=== PATIENT | female | born 1970 | race Caucasian/White ===

== ENCOUNTER 2021-06-03 14:31 | Emergency (ER) | payer OTHER, SELFPAY ==
--- NOTE | ~2021-06-03 | US_ITS ---
EXAMINATION: US DIAGNOSTIC ULTRASOUND BREAST, right. CLINICAL INFORMATION: Tenderness and firmness at the 8 o'clock position. COMPARISON: None. TECHNIQUE: Ultrasound of the right breast is performed with real-time clifton scale imaging and color Doppler. Region scanned from the 6:00 to 9:00 position FINDINGS: There is an anechoic cyst 2 cm from the nipple at 8:00 position. This measures 0.7 x 0.4 x 0.4 cm. There is an anechoic cyst at the 7:00 position 5 cm from the nipple. This measures 0.3 x 0.4 x 0.2 cm. No solid mass. No hyperemia. No evidence of abscess. US/US breast RT limited IMPRESSION: 2 small anechoic cysts in right breast in area of clinical concern. ASSESSMENT: BI-RADS 2: Benign RECOMMENDATION: 1. Patient should be managed based on the clinical impression. Decision to proceed with biopsy should be based on clinical grounds and degree of clinical concern. 2. Otherwise, routine annual screening mammography. This patient's information was entered into a reminder system with a target due date for their next mammogram.
[2021-06-03 15:13] VITALS: BP 170/83; PULSE 69; RESP 18; TEMP 36.7; O2SAT 98; BMI 32.0
[2021-06-03 15:45] LABS: COVID-19 Test Positive (Negative)
--- NOTE | 2021-06-03 16:25 | ED_ITS ---
HPI - General Adult General Chief complaint: General Medical Stated complaint: r breast pain Time Seen by Provider: 06/03/21 16:25 Source: patient Mode of arrival: ambulatory Limitations: no limitations History of Present Illness HPI narrative: 50 y/o female presenting with right breast pain for the last 4 days. She reports feeling something warm and firm on the right side of breast and it is very painful. She denies any trauma. No fevers or skin changes. She has never had any mammograms or ultrasounds before. She also reports a mild scratchy throat and dry cough. No SOB or chest pain. MD complaint: right breast pain Onset (ago): day(s) (4) Location: chest Radiation: non-radiation Severity: moderate Severity scale (1-10): 6 Quality: aching Pain Consistency: constant Relieving factors: none Exacerbating factors: movement and other (palpation) Associated symptoms: cough Treatments prior to arrival: none Related Data Previous Rx's Medication Instructions Recorded cephalexin 500 mg capsule 500 mg PO Q6H 7 Days #28 cap 06/03/21 doxycycline hyclate 100 mg tablet 100 mg PO BID #14 tab 06/03/21 Allergies Allergy/AdvReac Type Severity Reaction Status Date / Time sumatriptan [From IMITREX] Allergy Unknown UNKNOWN Verified 06/03/21 15:13 From IMITREX Allergy Unknown UNKNOWN Uncoded 02/15/20 17:07 Review of Systems Review of Systems: Constitutional: No Fever, No Chills ENT/Mouth: + sore throat, No Rhinorrhea, No Swallowing Difficulty Cardiovascular: No Chest Pain, No SOB Respiratory: + Cough, No Sputum, No Wheezing, No dyspnea Gastrointestinal: No Nausea, No Vomiting, No Diarrhea, No abdominal Pain Musculoskeletal: No joint pain, No Myalgias Skin: + Skin Lesions, No rash Neuro: No Weakness, No Numbness, No Dizziness, No Headache Psych: + Anxiety/Panic, No Depression Heme/Lymph: No Bruising, No Lymphadenopathy PMFSH Past Medical History Medical History (Updated 06/03/21 @ 19:38 by LOI Blair) Patient denies medical problems Social History Social History Advance Directives: No Advance Directives Information Provided: No Physical Exam Vital Signs: Vital Signs: Last Vital Signs Temp 98.0 F 06/03/21 15:13 Pulse 69 06/03/21 15:13 Resp 18 06/03/21 15:13 BP 170/83 H 06/03/21 15:13 Pulse Ox 98 06/03/21 15:13 BMI result Body Mass Index 32.0 Appearance: Alert. Oriented X3. No acute distress. Eyes: Pupils equal, round and reactive to light. ENT: Pharynx normal. No tonsillar exudate or swelling, uvula midline. Neck: Normal inspection. Neck supple. CVS: Normal heart rate and rhythm. Pulses normal. Chest: normal inspection of bilateral breasts. right breast with tender and slightly firm area at 8 o'clock without any associated warmth, erythema or fluctuance. no nipple discharge Respiratory: No respiratory distress. Breath sounds normal. Skin: Skin warm and dry. Normal skin color. Normal skin turgor. No rashes. Extremities: No lower extremity edema. Neuro: Oriented X 3. Grossly normal, nonfocal Course Course Course Narrative: 50 y/o female presenting with right breast pain x4 days. No palpable abscess on exam. Will get ultrasound to look for deeper abscess. Also found to be COVID positive. Symptoms are mild. Reevaluation(s) Reevaluation #1: Received call from radiology that a special mammography for/breast specialist is not available to read her ultrasound tonight. Asked that a preliminary read be done from radiologist to get rate soft tissue images. The readings showing 2 small anechoic cysts in the right breast. Photo was sent to Dr. Fernandez with concern of possible underlying abscess. He is recommending oral antibiotics, follow up in 1 week in the office for a fine- needle aspiration. freelance interpreter/translator was used to explain the results and plan. Patient expressed understanding. Stable for discharge home with p.o. antibiotics and surgical follow-up. Medical Decision Making Lab Data Labs: Lab Results 06/03/21 Range/Units 15:19 COVID-19 (DANIEL) Positive A (Negative) COVID-19 Clin Com See Note Discharge Plan Discharge Clinical Impression: COVID-19, Abscess of breast Patient Disposition: Home, Self-Care Instructions: Covid-19 Viral Syndrome and Novel Coronavirus (ED) Hey/Ath Additional Instructions: You were found to be COVID-19 POSITIVE today. Your oxygen levels were normal. Rest. Drink plenty of fluids. Do not go out in public for the next 7 days. Take over the counter cold/flu medications as needed for your symptoms. Take Tylenol and/or Motrin as needed for fevers and body aches. Follow up with your doctor this week. If you shortness of breath worsens, if you develop difficulty breathing or any other concerning symptom come back to the ER for further evaluation. Your breast ultrasound showed 2 small possible abscesses vs cysts. Start the prescribed antibiotics. You will need to follow up with a general surgeon for evaluation and get a needle aspiration. Call Dr. Fernandez's office tomorrow to arrange this. Name and number below. Se encontr? que hoy es COVID-19 POSITIVO. Shalini niveles de ox?earl pola normales. Descansar. Beber mucho l?quido. No salgas en p?blico simon los pr?ximos 7 d?as. [place] medicamentos de venta brayan para el resfriado / la gripe seg?n sea necesario para shalini s?ntomas. [place] Tylenol y / o Motrin seg?n sea necesario para la fiebre y los randy corporales. Elvis un seguimiento con chau m?dico esta semana. Si chau dificultad para respirar empeora, si presenta dificultad para respirar o cualquier otro s?ntoma preocupante, regrese a la alyson de emergencias para nabil evaluaci?n adicional. Chau ultrasonido de mama mostr? 2 posibles abscesos joshua?os frente a quistes. Inicie los antibi?ticos recetados. Deber? hacer un seguimiento con un cirujano general para nabil evaluaci?n y nabil aspiraci?n con aguja. Llame a la oficina del Dr. Fernandez ma?jc para arreglar esto. Nombre y n?martha a continuaci?n. Prescriptions: New doxycycline hyclate 100 mg tablet 100 mg PO BID Qty: 14 RF: 0 cephalexin 500 mg capsule 500 mg PO Q6H 7 Days Qty: 28 RF: 0 Referrals: Reginaldo Fernandez MD [Physician] - 2 days (breast abscess vs cyst) Interventions: ED Discharge Assessment Last Done: 06/03/21 20:33 Discharge Date/Time: 06/03/21 20:36 Print Language: Slovenian
[2021-06-03] MEDS: cephALEXin 500 MG CAPSULE PO (20:30)
== END 2021-06-03 20:36 | disposition home or self-care (01) ==
PROVIDERS: Emergency Provider Emergency Medicine Emergency Medical Services; PCP Internal Medicine Endocrinology, Diabetes & Metabolism
DX: U07.1 COVID-19 (principal); N61.1 Abscess of the breast and nipple; N64.4 Mastodynia
CPT/HCPCS: 76642; 87635; 99282; 99284

== ENCOUNTER → 2021-06-19 09:47 | Outpatient (BNVA) | payer OTHER, SELFPAY | PROVIDERS: PCP Internal Medicine Endocrinology, Diabetes & Metabolism; Visit Provider Surgery | DX: N61.1 Abscess of the breast and nipple (principal) | CPT/HCPCS: 99202 ==

== ENCOUNTER 2022-07-24 16:31 | Emergency (ER) | payer OTHER, SELFPAY ==
--- NOTE | ~2022-07-24 | US_ITS ---
EXAMINATION: US PELVIS CLINICAL INFORMATION: Left lower quadrant pain. Hysterectomy. Right oophorectomy. COMPARISON: CT abdomen/pelvis 07/26/2018. TECHNIQUE: Ultrasound of the pelvis is performed using both transabdominal and transvaginal transducers along with Doppler. Transvaginal imaging is performed due to inadequate visualization transabdominally. FINDINGS: Hysterectomy and right oophorectomy. The left ovary is enlarged measuring 5.3 x 2.9 x 3.1 cm (25 mL) with suggestion of some degree of heterogeneity of the ovarian stroma. There is preserved flow on color and spectral Doppler to the left ovary at the moment of this examination. There is a 3.2 x 2.6 x 3.1 cm simple anechoic cyst in the left ovary. There is an additional 1.6 x 1.6 x 1.3 cm cystic appearing observation in the left ovary with thickened duran and internal debris. Small amount of free fluid adjacent to the left ovary. US/US pelvic ovarian doppler IMPRESSION: The left ovary is enlarged with equivocal heterogeneity of the parenchyma, although with preserved flow at the moment of this examination. If ovarian torsion is suspected, additional evaluation with a MR of the pelvis with and without IV contrast could be obtained if clinically pertinent. There is a 3.2 cm cystic appearing lesion in the left ovary with thickened duran and debris, possibly representing a corpus luteal cyst, though incompletely characterized. This could be assessed with the above recommended MRI or with an interval pelvic ultrasound in 6-12 weeks. An additional 1.6 cm simple cyst in the left ovary is almost are likely benign, for which no imaging follow-up is recommended.
--- NOTE | ~2022-07-24 | US_ITS ---
EXAMINATION: US PELVIS CLINICAL INFORMATION: Left lower quadrant pain. Hysterectomy. Right oophorectomy. COMPARISON: CT abdomen/pelvis 07/26/2018. TECHNIQUE: Ultrasound of the pelvis is performed using both transabdominal and transvaginal transducers along with Doppler. Transvaginal imaging is performed due to inadequate visualization transabdominally. FINDINGS: Hysterectomy and right oophorectomy. The left ovary is enlarged measuring 5.3 x 2.9 x 3.1 cm (25 mL) with suggestion of some degree of heterogeneity of the ovarian stroma. There is preserved flow on color and spectral Doppler to the left ovary at the moment of this examination. There is a 3.2 x 2.6 x 3.1 cm simple anechoic cyst in the left ovary. There is an additional 1.6 x 1.6 x 1.3 cm cystic appearing observation in the left ovary with thickened duran and internal debris. Small amount of free fluid adjacent to the left ovary. US/US pelvic and transvaginal IMPRESSION: The left ovary is enlarged with equivocal heterogeneity of the parenchyma, although with preserved flow at the moment of this examination. If ovarian torsion is suspected, additional evaluation with a MR of the pelvis with and without IV contrast could be obtained if clinically pertinent. There is a 3.2 cm cystic appearing lesion in the left ovary with thickened duran and debris, possibly representing a corpus luteal cyst, though incompletely characterized. This could be assessed with the above recommended MRI or with an interval pelvic ultrasound in 6-12 weeks. An additional 1.6 cm simple cyst in the left ovary is almost are likely benign, for which no imaging follow-up is recommended.
--- NOTE | ~2022-07-24 | CT_ITS ---
EXAMINATION: CT ABDOMEN AND PELVIS WITHOUT CONTRAST CLINICAL INFORMATION: Left lower quadrant pain COMPARISON: Pelvic ultrasound from earlier today, CT 07/26/2018 TECHNIQUE: Multidetector volumetric imaging was performed from the superior aspect of the liver through the pubic symphysis. Sagittal and coronal reformatted images were obtained on the technologist's workstation. This CT examination was performed using dose optimization techniques as appropriate, variously including the following: *Automated exposure control *Adjustment of mA and/or kV according to patient size (this includes techniques or standardized protocols for targeted exams where dose is matched to indication/reason for exam; i.e. extremities or head) *Use of iterative reconstruction technique DLP: 639 mGy-cm FINDINGS: LUNG BASES: Subsegmental atelectasis. LIVER, GALLBLADDER, AND BILIARY TREE: The liver is normal in size, shape, and attenuation. No focal hepatic lesion or biliary ductal dilatation is present. Patient is status post cholecystectomy. PANCREAS: Unremarkable. SPLEEN: Unremarkable. ADRENAL GLANDS: Unremarkable. KIDNEYS AND URETERS: No hydronephrosis or obstructing calculus bilaterally. There is an approximately 3 cm left renal cyst; no follow-up recommended. BLADDER: Unremarkable. GASTROINTESTINAL TRACT: No evidence of bowel obstruction or significant wall thickening. The appendix is unremarkable. No free air is seen. ABDOMINAL WALL: No significant hernia is appreciated. LYMPH NODES: Normal. VASCULAR: Unremarkable. PELVIC VISCERA: Status post hysterectomy. There is a 3.0 cm left adnexal cyst, in keeping with appearance on recent pelvic ultrasound. Small amount of pelvic free fluid. OSSEOUS STRUCTURES: Multilevel endplate osteophytes in the spine. CT/CT abdomen pelvis wo IV con IMPRESSION: Left adnexal cyst measuring 3.0 cm, in keeping with findings on recent pelvic ultrasound. Small amount of nonspecific pelvic free fluid, which may be physiologic. No additional acute findings identified.
--- NOTE | 2022-07-24 17:05 | ED.GENADULT ---
HPI - General Adult General Chief complaint: Abdominal Pain <LOI Blackman - Last Filed: 07/24/22 17:07> Stated complaint: ovarian pain <LOI Blackman - Last Filed: 07/24/22 17:07> Time Seen by Provider: 07/24/22 23:06 <LOI Blackman - Last Filed: 07/24/22 17:07> Source: patient <Elzbieta Juarez MD - Last Filed: 07/25/22 00:37> Mode of arrival: ambulatory <Elzbieta Juarez MD - Last Filed: 07/25/22 00:37> Limitations: no limitations <Elzbieta Juarez MD - Last Filed: 07/25/22 00:37> History of Present Illness HPI narrative: The patient comes to the emergency room complaining of left lower quadrant pain starting today. Patient states that in the morning she had a bit of achiness, then while she was working, around 16:00, the pain got much worse. Since then it has been constant. Patient denies nausea vomiting diarrhea or constipation. Patient states that she has history of ovarian cysts, patient states that her right ovary has been surgically removed and her uterus as well. Patient denies fever chills, no dysuria or hematuria <Elzbieta Juarez MD - Last Filed: 07/25/22 00:37> Related Data Home medications: Previous Rx's Medication Instructions Recorded cephalexin 500 mg capsule 500 mg PO Q6H 7 days #28 caps 06/19/21 doxycycline hyclate 100 mg tablet 100 mg PO BID #14 tabs 06/19/21 ketorolac 10 mg tablet 10 mg PO TID PRN pain #10 tabs 07/25/22 <LOI Blackman - Last Filed: 07/24/22 17:07> Allergies/adverse reactions: Allergies Allergy/AdvReac Type Severity Reaction Status Date / Time sumatriptan [From IMITREX] Allergy Unknown UNKNOWN Verified 07/24/22 17:06 From IMITREX Allergy Unknown UNKNOWN Uncoded 06/19/21 10:03 <LOI Blackman - Last Filed: 07/24/22 17:07> Review of Systems Review of Systems: Constitutional : No Weight loss, No Fever, No Chills, No Night Sweats, No Fatigue, No Malaise ENT/Mouth : No Hearing loss, No Ear Pain, No Nasal Congestion, No Sinus Pain, No Hoarseness, No sore throat, No Rhinorrhea, No Swallowing Difficulty Eyes: No Eye Pain, No Swelling, No Redness, No Foreign Body, No Discharge, No Vision Changes Cardiovascular : No Chest Pain, No SOB, No Dyspnea on Exertion, No Orthopnea, No Edema, No Palpitations Respiratory : No Cough, No Sputum, No Wheezing, No Smoke Exposure, No Dyspnea Gastrointestinal : No Nausea, No Vomiting, No Diarrhea, No Constipation, complaining of left lower quadrant pain Genitourinary : no irregular bleeding, No Dysuria, No Urinary Frequency, No Hematuria, No Urinary Incontinence, No Urgency, No Flank Pain, No Urinary Flow Changes, No Hesitancy Musculoskeletal : No joint pain, No Myalgias, No Joint Swelling Skin : No Skin Lesions, No rash Neuro : No Weakness, No Numbness, No Paresthesias, No Loss of Consciousness, No Dizziness, No Headache Psych : No Anxiety/Panic, No Depression, No SI/HI/AH/VH, No Social Issues, Heme/Lymph: No Bruising, No Bleeding,No Lymphadenopathy Endocrine : No Polyuria, No Polydipsia, No Temperature Intolerance <Elzbieta Juarez MD - Last Filed: 07/25/22 00:37> [facility] Past Medical History Medical History: Medical History Patient denies medical problems <LOI Blackman - Last Filed: 07/24/22 17:07> Surgical History: Surgical History History of bilateral carpal tunnel release History of hysterectomy History of tubal ligation S/P removal of right ovary <LOI Blackman - Last Filed: 07/24/22 17:07> Family History Family History: Family History Sister Breast cancer Sister Breast cancer Family/Other Breast cancer <LOI Blackman - Last Filed: 07/24/22 17:07> Social History Social History: Social History Alcohol intake: current Alcohol intake frequency: holidays/special occasions only Patient Tobacco Use Status: Former Tobacco user Advance Directives: No Advance Directives Information Provided: No <LOI Blackman - Last Filed: 07/24/22 17:07> Physical Exam ED Vital Signs: Vital Signs - 24 hr 07/24/22 17:06 07/24/22 23:53 Temperature 98.2 F 97.4 F Pulse Rate 71 67 Respiratory Rate 16 14 Blood Pressure 138/78 170/83 H Pulse Oximetry 99 98 Oxygen Delivery Method Room Air BMI result Body Mass Index 34.2 <LOI Blackman - Last Filed: 07/24/22 17:07> Vital Signs - 24 hr 07/24/22 17:06 07/24/22 23:53 Temperature 98.2 F 97.4 F Pulse Rate 71 67 Respiratory Rate 16 14 Blood Pressure 138/78 170/83 H Pulse Oximetry 99 98 Oxygen Delivery Method Room Air BMI result Body Mass Index 34.2 <Elzbieta Juarez MD - Last Filed: 07/25/22 00:37> Const Other: Appearance: Alert. Oriented X3. No acute distress. Eyes: Pupils equal, round and reactive to light. ENT: Pharynx normal. Neck: Normal inspection. Neck supple. No lymph nodes noted. No crepitus CVS: Normal heart rate and rhythm. Pulses normal. Normal S1 and S2 Respiratory: No respiratory distress. Breath sounds normal. No Wheezing. No rales Abdomen: Soft, no rigidity, no distension, no rebound or guarding. Mild left lower quadrant pain on deep palpation. Skin: Skin warm and dry. Normal skin color. Normal skin turgor. Extremities: No lower extremity edema. No Lacerations. No Rash Neuro: Oriented X 3. No motor deficit. No sensory deficit. Moving all extremities. No slurred speech. CN 2 through 12 grossly intact Psych: calm, cooperative, normal affect <Elzbieta Juarez MD - Last Filed: 07/25/22 00:37> Course Course Course Narrative: RME performed by Ciara Cai PA-C. Patient is a 51 year old female presenting to the emergency department with left lower quadrant abdominal pain. Patient states that it feels like ovarian pain as her right ovary hurt like this before it was removed. Labs ordered. Patient placed back in the waiting room pending room availability and results. <LOI Blackman Last Filed: 07/24/22 17:07> Medications Administered Discontinued Medications Generic Name Dose Route Start Last Admin Trade Name Freq PRN Reason Stop Dose Admin Ketorolac Tromethamine 60 mg 07/24/22 23:11 07/24/22 23:42 Ketorolac Tromethamine 60 Mg/2 Ml Vial IM 07/24/22 23:12 60 mg ONCE ONE Administration <LOI Blackman - Last Filed: 07/24/22 17:07> Medications Administered Discontinued Medications Generic Name Dose Route Start Last Admin Trade Name Freq PRN Reason Stop Dose Admin Ketorolac Tromethamine 60 mg 07/24/22 23:11 07/24/22 23:42 Ketorolac Tromethamine 60 Mg/2 Ml Vial IM 07/24/22 23:12 60 mg ONCE ONE Administration <Elzbieta Juarez MD - Last Filed: 07/25/22 00:37> Medical Decision Making Medical Decision Making [facility] Narrative: -patient's labs are unremarkable, there is a small 1.6 simple cyst in the left ovary -patient's CT consistent with ultrasound, patient has a left ovarian cyst, not ruptured. -and was given IM ketorolac. Patient feeling better. -patient instructed to follow-up with his primary care physician and Ob Gyne <Elzbieta Juarez MD - Last Filed: 07/25/22 00:37> Differential Diagnosis Differential Diagnoses: The differential diagnosis associated with the presentation includes (Ovarian cyst, diverticulitis) <Elzbieta Juarez MD - Last Filed: 07/25/22 00:37> Lab Data [facility] Lab Attestation statement: I reviewed the patient's lab results. <Elzbieta Juarez MD - Last Filed: 07/25/22 00:37> Result Diagrams: 07/24/22 17:19 07/24/22 17:19 <LOI Blackman - Last Filed: 07/24/22 17:07> Labs: Lab Results 07/24/22 07/24/22 07/24/22 Range/Units 17:19 17:19 22:07 WBC 7.9 (4.8-10.8) X10*3/uL RBC 4.42 (4.20-5.50) X10*6/uL Hgb 13.1 (12.0-16.0) g/dl Hct 40.2 (37.0-47.0) % MCV 91.0 (80.0-98.0) fL MCH 29.6 (27.0-33.0) pg MCHC 32.6 (31.0-35.0) g/dl RDW 11.9 (11.0-16.0) % Plt Count 197 (160-400) X10*3/uL MPV 10.8 (9.4-12.3) fL Immature Gran % (Auto) 0.4 (0.0-0.4) % Neut % (Auto) 56.0 (45-73) % Lymph % (Auto) 34.2 (20-40) % [place] % (Auto) 6.8 (2-11) % Eos % (Auto) 1.8 (0-4) % Baso % (Auto) 0.8 (0-2) % Lymph # (Auto) 2.7 (1.2-4.9) X10*3/uL [place] # (Auto) 0.5 (0.1-1.2) X10*3/uL Eos # (Auto) 0.1 (0.0-0.4) X10*3/uL Baso # (Auto) 0.1 (0.0-0.2) X10*3/uL Abs Immat Gran (auto) 0.03 (0.00-0.03) X10*3/uL Absolute Neuts (auto) 4.4 (2.0-8.3) x10*3/uL Absolute Nucleated RBC 0.000 (0.0-0.012) X10*3/uL Nucleated RBC % (auto) 0.0 (0.0-0.2) /100WBC Sodium 143 (135-145) mmol/L Potassium 4.1 (3.3-5.1) mmol/L Chloride 109 H (96-108) mmol/L Carbon Dioxide 30 H (22-29) mmol/L Anion Gap 8 L (12-20) BUN 11 (9-16) mg/dL Creatinine 0.76 (0.5-1.4) mg/dL Estim Creat Clear Calc 90.4 Estimated GFR > 60 Random Glucose 90 (60-115) mg/dL Calcium 9.0 (8.4-10.2) mg/dL Magnesium 1.9 (1.6-2.6) mg/dL Total Bilirubin 0.3 (0.0-1.0) mg/dL AST 15 (5-31) U/L ALT 26 (0-31) U/L Alkaline Phosphatase 76 (39-117) U/L Total Protein 6.7 (6.5-8.0) g/dL Albumin 4.1 (3.5-5.0) g/dL Beta HCG, Quant < 2 mIU/mL Urine Color Yellow Urine Appearance Clear Urine pH 6.5 (5.0-9.0) Ur Specific [place] 1.010 (1.005-1.025) Urine Protein Negative (Neg-Trace) mg/dL Urine Glucose (UA) Negative (Negative) mg/dL Urine Ketones Negative (Negative) mg/dL Urine Blood Negative (Negative) Urine Nitrite Negative (Negative) Ur Leukocyte Esterase Negative (Negative) <LOI Blackman - Last Filed: 07/24/22 17:07> Lab Results 07/24/22 07/24/22 07/24/22 Range/Units 17:19 17:19 22:07 WBC 7.9 (4.8-10.8) X10*3/uL RBC 4.42 (4.20-5.50) X10*6/uL Hgb 13.1 (12.0-16.0) g/dl Hct 40.2 (37.0-47.0) % MCV 91.0 (80.0-98.0) fL MCH 29.6 (27.0-33.0) pg MCHC 32.6 (31.0-35.0) g/dl RDW 11.9 (11.0-16.0) % Plt Count 197 (160-400) X10*3/uL MPV 10.8 (9.4-12.3) fL Immature Gran % (Auto) 0.4 (0.0-0.4) % Neut % (Auto) 56.0 (45-73) % Lymph % (Auto) 34.2 (20-40) % [place] % (Auto) 6.8 (2-11) % Eos % (Auto) 1.8 (0-4) % Baso % (Auto) 0.8 (0-2) % Lymph # (Auto) 2.7 (1.2-4.9) X10*3/uL [place] # (Auto) 0.5 (0.1-1.2) X10*3/uL Eos # (Auto) 0.1 (0.0-0.4) X10*3/uL Baso # (Auto) 0.1 (0.0-0.2) X10*3/uL Abs Immat Gran (auto) 0.03 (0.00-0.03) X10*3/uL Absolute Neuts (auto) 4.4 (2.0-8.3) x10*3/uL Absolute Nucleated RBC 0.000 (0.0-0.012) X10*3/uL Nucleated RBC % (auto) 0.0 (0.0-0.2) /100WBC Sodium 143 (135-145) mmol/L Potassium 4.1 (3.3-5.1) mmol/L Chloride 109 H (96-108) mmol/L Carbon Dioxide 30 H (22-29) mmol/L Anion Gap 8 L (12-20) BUN 11 (9-16) mg/dL Creatinine 0.76 (0.5-1.4) mg/dL Estim Creat Clear Calc 90.4 Estimated GFR > 60 Random Glucose 90 (60-115) mg/dL Calcium 9.0 (8.4-10.2) mg/dL Magnesium 1.9 (1.6-2.6) mg/dL Total Bilirubin 0.3 (0.0-1.0) mg/dL AST 15 (5-31) U/L ALT 26 (0-31) U/L Alkaline Phosphatase 76 (39-117) U/L Total Protein 6.7 (6.5-8.0) g/dL Albumin 4.1 (3.5-5.0) g/dL Beta HCG, Quant < 2 mIU/mL Urine Color Yellow Urine Appearance Clear Urine pH 6.5 (5.0-9.0) Ur Specific [place] 1.010 (1.005-1.025) Urine Protein Negative (Neg-Trace) mg/dL Urine Glucose (UA) Negative (Negative) mg/dL Urine Ketones Negative (Negative) mg/dL Urine Blood Negative (Negative) Urine Nitrite Negative (Negative) Ur Leukocyte Esterase Negative (Negative) <Elzbieta Juarez MD - Last Filed: 07/25/22 00:37> Radiology Impression Discussion of test interpretation with radiology: I have reviewed the radiologist's reading. <Elzbieta Juarez MD - Last Filed: 07/25/22 00:37> Radiologist Impression: CT scan of the abdomen pelvis FINDINGS: LUNG BASES: Subsegmental atelectasis.? LIVER, GALLBLADDER, AND BILIARY TREE: The liver is normal in size, shape, and attenuation. No focal hepatic lesion or biliary ductal dilatation is present. Patient is status post cholecystectomy.? PANCREAS: Unremarkable.? SPLEEN: Unremarkable.? ADRENAL GLANDS: Unremarkable.? KIDNEYS AND URETERS: No hydronephrosis or obstructing calculus bilaterally. There is an approximately 3 cm left renal cyst; no follow-up recommended.? BLADDER: Unremarkable.? GASTROINTESTINAL TRACT: No evidence of bowel obstruction or significant wall thickening. The appendix is unremarkable. No free air is seen.? ABDOMINAL WALL: No significant hernia is appreciated.? LYMPH NODES: Normal. VASCULAR: Unremarkable. PELVIC VISCERA: Status post hysterectomy. There is a 3.0 cm left adnexal cyst, in keeping with appearance on recent pelvic ultrasound. Small amount of pelvic free fluid.? OSSEOUS STRUCTURES: Multilevel endplate osteophytes in the spine.? CT/CT abdomen pelvis wo IV con IMPRESSION: Left adnexal cyst measuring 3.0 cm, in keeping with findings on recent pelvic ultrasound. Small amount of nonspecific pelvic free fluid, which may be physiologic. No additional acute findings identified Ultrasound of pelvis IMPRESSION: The left ovary is enlarged with equivocal heterogeneity of the parenchyma, although with preserved flow at the moment of this examination. If ovarian torsion is suspected, additional evaluation with a MR of the pelvis with and without IV contrast could be obtained if clinically pertinent. ? There is a 3.2 cm cystic appearing lesion in the left ovary with thickened duran and debris, possibly representing a corpus luteal cyst, though incompletely characterized. This could be assessed with the above recommended MRI or with an interval pelvic ultrasound in 6-12 weeks. ? An additional 1.6 cm simple cyst in the left ovary is almost are likely benign, for which no imaging follow-up is recommended. <Elzbieta Juarez MD - Last Filed: 07/25/22 00:37> Discharge Plan Discharge Clinical Impression: Ovarian cyst <LOI Blackman - Last Filed: 02/24/23 17:07> Patient Disposition: Home, Self-Care <LOI Blackman - Last Filed: 07/24/22 17:07> Instructions: Ovarian Cyst (ED) <LOI Blackman - Last Filed: 07/24/22 17:07> Additional Instructions: Please follow-up with your primary care physician tomorrow. If you have any worsening or new symptoms, please return to the emergency room or call 911 <LOI Blackman - Last Filed: 07/24/22 17:07> Prescriptions: New ketorolac 10 mg tablet 10 mg PO TID PRN (Reason: pain) Qty: 10 0RF Rx Instructions: Denied uses medication with NSAIDs, only Tylenol if needed No Action cephalexin 500 mg capsule 500 mg PO Q6H 7 Days Qty: 28 0RF doxycycline hyclate 100 mg tablet 100 mg PO BID Qty: 14 0RF <LOI Blackman - Last Filed: 07/24/22 17:07>
[2022-07-24 17:06] VITALS: BP 138/78; PULSE 71; RESP 16; TEMP 36.8; O2SAT 99; BMI 34.2
[2022-07-24 17:24] LABS: MANUAL DIFF FLAG NO
[2022-07-24 17:37] LABS: Basophils Absolute Auto 0.1 X10*3/uL (0.0-0.2); Basophils Percent Auto 0.8 % (0-2); Eosinophils Absolute Auto 0.1 X10*3/uL (0.0-0.4); Eosinophils Percent Auto 1.8 % (0-4); Hematocrit 40.2 % (37.0-47.0); Hemoglobin 13.1 g/dl (12.0-16.0); Imm Gran Abs Auto 0.03 X10*3/uL (0.00-0.03); Imm Gran Pct Auto 0.4 % (0.0-0.4); Lymphocytes Absolute Auto 2.7 X10*3/uL (1.2-4.9); Lymphocytes Percent Auto 34.2 % (20-40); Mean Corpuscular HGB Conc 32.6 g/dl (31.0-35.0); Mean Corpuscular Hemoglobin 29.6 pg (27.0-33.0); Mean Platelet Volume 10.8 fL (9.4-12.3); Monocytes Absolute Auto 0.5 X10*3/uL (0.1-1.2); Monocytes Percent Auto 6.8 % (2-11); Neutrophils Absolute Auto 4.4 x10*3/uL (2.0-8.3); Platelet Count 197 X10*3/uL (160-400); Red Blood Count 4.42 X10*6/uL (4.20-5.50); Red Cell Distribution Width 11.9 % (11.0-16.0); White Blood Count 7.9 X10*3/uL (4.8-10.8)
[2022-07-24 17:43] LABS: Alanine Aminotransferase 26 U/L (0-31); Albumin Level 4.1 g/dL (3.5-5.0); Alkaline Phosphatase 76 U/L (39-117); Anion Gap 8 (12-20); Aspartate Amino Transferase 15 U/L (5-31); Bilirubin Total 0.3 mg/dL (0.0-1.0); Blood Urea Nitrogen 11 mg/dL (9-16); Carbon Dioxide 30 mmol/L (22-29); Chloride 109 mmol/L (96-108); Creatinine Clr Calc Pharmacy 90.4; Estimated Glomerular Filt Rate > 60; Glucose Random 90 mg/dL (60-115); Magnesium 1.9 mg/dL (1.6-2.6); Potassium 4.1 mmol/L (3.3-5.1); Sodium 143 mmol/L (135-145); Total Protein 6.7 g/dL (6.5-8.0)
[2022-07-24 22:13] LABS: Appearance Urine Clear; Color Urine Yellow; Glucose Urine UA Negative (Negative); Leukocyte Esterase Urine Negative (Negative); Nitrite Urine Negative (Negative); PH 6.5 (5.0-9.0); Urine Blood Negative (Negative); Urine Ketones Negative (Negative); Urine Protein Negative (Neg-Trace)
[2022-07-24 23:31] LABS: HCG Quantitative < 2 mIU/mL
[2022-07-24] MEDS: Ketorolac Tromethamine 60 MG/2 ML VIAL IM (23:42)
[2022-07-24 23:53] VITALS: BP 170/83; PULSE 67; RESP 14; TEMP 36.3; O2SAT 98
--- NOTE | 2022-07-25 00:48 | PC.NURSE ---
Discharge instructions reviewed with pt. Pt verbalizes understanding.
== END 2022-07-25 00:49 | disposition home or self-care (01) ==
PROVIDERS: Physician Assistant Medical; Emergency Provider Emergency Medicine
DX: N83.202 Unspecified ovarian cyst, left side (principal); R10.32 Left lower quadrant pain; R10.2 Pelvic and perineal pain; Z79.899 Other long term (current) drug therapy
CPT/HCPCS: 36415; 74176; 76830; 76856; 80053; 81003; 83735; 84702; 85025; 93975; 96372; 99284; J1885

== ENCOUNTER 2025-02-13 14:23 | Emergency (ER) | payer OTHER, SELFPAY ==
[2025-02-13] VITALS (7 sets, daily range): BP systolic 172–213; BP diastolic 85–107; PULSE 72–79; RESP 14–20; TEMP 36.4–36.7; O2SAT 96–100; BMI 32.2
--- NOTE | ~2025-02-13 | US_ITS ---
EXAMINATION: US RETROPERITONEAL LIMITED, LEFT(RENAL ONLY) CLINICAL INFORMATION: CVA tenderness. COMPARISON: CT from July 24, 2022 TECHNIQUE: Grayscale and color Doppler imaging was performed through the left kidney FINDINGS: LEFT KIDNEY: 11 x 6 x 6 cm (SAG x AP x TRV). The kidney is normal in size, contour, and echogenicity. Renal cortical thickness is normal. Again seen is an anechoic cyst with increased through transmission in the equatorial region of the kidney with a thin-wall and with no internal septation or mural nodule measuring 3.6 cm in maximum diameter. US/US renal LT IMPRESSION: Benign simple renal cyst in the mid left kidney, stable. Electronically signed by: Rao Ramirez MD 02/13/2025 04:24 PM EDT
--- NOTE | ~2025-02-13 | CT_ITS ---
CLINICAL HISTORY: LLQ pain CT abdomen and pelvis with contrast Comparison: CT ABDOMEN PELVIS WITHOUT IV CONTRAST - 07/24/2022 11:13 PM EST Findings: No consolidation or effusion. Bibasilar atelectatic/dependent changes. Heart is normal size. Status post cholecystectomy. No evidence of intra or extrahepatic ductal dilation. Left kidney midpole 3.6 cm cyst. Solid organs otherwise unremarkable. No hydronephrosis or nephrolithiasis. No bowel obstruction, pneumoperitoneum, or pneumatosis. Pelvic contents unremarkable. Appendix is not definitely visualized however, no secondary signs of acute appendicitis. Redemonstration of the 2.9 cm left adnexal cyst. Small pelvic free fluid within the cul-de-sac. No acute fracture. IMPRESSION: No acute findings. Status post cholecystectomy. No intra or extrahepatic ductal dilation. Left kidney midpole 3.6 cm cyst, unchanged in the interval. A 2.9 cm left adnexal cyst and small to moderate pelvic free fluid again noted. This document has been electronically signed by: Tamara Calhoun MD on 02/13/2025 19:47:00
--- NOTE | 2025-02-13 14:49 | ED.GENADULT ---
HPI - General Adult General Chief complaint: Abdominal Pain Stated complaint: LLQ abd pain Time Seen by Provider: 02/13/25 17:56 Source: patient, family, RN notes reviewed, old records reviewed and seismic interpreter Mode of arrival: EMS Limitations: language barrier History of Present Illness ED Provider: Angella HPI narrative: 54-year-old female presents for evaluation of left lower abdominal pain. Patient reports that her pain woke her up from sleep last night. She has some associated nausea. No vomiting, denies any diarrhea. Her last bowel movement was this morning in his normal for her. She reports some burning when she urinates. Her pain radiates into the left pelvic region. She reports that she is status post transvaginal hysterectomy Denies any fevers, chills. She reports a history of kidney stones that has not noticed any blood in her urine No other complaints or concerns at this time pain Her pain is rated as 10/10 Related Data Previous Rx's ?Medication ?Instructions ?Recorded cephalexin 500 mg capsule 500 mg PO Q6H 7 days #28 caps 06/19/21 doxycycline hyclate 100 mg tablet 100 mg PO BID #14 tabs 06/19/21 ketorolac 10 mg tablet 10 mg PO TID PRN pain #10 tabs 07/25/22 Allergies Allergy/AdvReac Type Severity Reaction Status Date / Time sumatriptan (From IMITREX) Allergy Unknown UNKNOWN Verified 02/13/25 14:47 From [facility]IT[facility] Allergy Unknown UNKNOWN Uncoded 06/19/21 10:03 Review of Systems Constitutional: Constitutional: Denies body ache(s), Denies chills, Denies fever(s) and Denies headache(s) ENT: Denies headache(s) Cardiovascular: Cardiovascular: Denies chest pain and Denies dyspnea on exertion Respiratory: Respiratory: Denies cough and Denies dyspnea on exertion Gastrointestinal: Gastrointestinal: Reports abdominal pain, Denies melena, Denies hematochezia, Denies constipation, Denies diarrhea, Reports nausea and Denies vomiting Genitourinary: Genitourinary: Reports difficulty voiding, Reports dysuria, Reports pelvic pain, Reports flank pain and Denies vaginal discharge Musculoskeletal: Musculoskeletal: Denies back pain Integumentary/Breasts: Skin/Breast: Denies rash Neurologic: Denies headache(s) Psychiatric: Psychiatric: Denies anxiety PMFSH Past Medical History Medical History Patient denies medical problems Surgical History History of bilateral carpal tunnel release History of hysterectomy History of tubal ligation S/P removal of right ovary Family History Family History Sister Breast cancer Sister Breast cancer Family/Other Breast cancer Social History Social History Alcohol intake: current Alcohol intake frequency: holidays/special occasions only Patient Tobacco Use Status: Former Tobacco user Advance Directives: No Advance Directives Information Provided: No Physical Exam ED Vital Signs: Vital Signs - 24 hr 02/13/25 14:46 02/13/25 18:05 02/13/25 18:47 Temperature 97.6 F 98.0 F Pulse Rate 75 73 Respiratory Rate 20 16 20 Blood Pressure 194/99 H 203/98 H Pulse Oximetry 99 96 Oxygen Delivery Method Room Air Room Air 02/13/25 19:23 02/13/25 21:01 Temperature 98.0 F 97.5 F Pulse Rate 78 79 Respiratory Rate 14 14 Blood Pressure 188/85 H 198/90 H Pulse Oximetry 99 100 Oxygen Delivery Method Room Air Room Air BMI result Body Mass Index 32.2 Const General: healthy appearing, comfortable, no acute distress, alert and awake Nutritional Appearance: well nourished Orientation/consciousness: patient oriented x3 HENMT Head: Yes normocephalic and Yes atraumatic Eyes Eyelids: Yes eyelids normal Conjunctivae: conjunctivae normal Sclerae: sclerae normal Corneas: corneas normal Pupils: Equal, round and reactive pupils present EOM: EOMs intact bilaterally Neck Neck: Yes full ROM Resp Effort & Inspection: normal respiratory effort, able to speak in complete sentences and not labored Cardio Rate: regular rate Rhythm: regular rhythm GI Inspection: No distended Palpation (GI): Soft to palpation, not firm, Tenderness to palpation present (GI) in the LLQ, Guarding due to palpation present (GI) (Guarding left lower abdomen without rebound) in the LLQ and not rigid Skin General skin exam: elasticity normal Neuro General: patient oriented x3 Cranial nerves: Yes Equal, round and reactive pupils present and Yes Bilaterally intact EOM present Cognition (Neuro): normal cognition Extrem Other: Moving all extremities well without any obvious deformities Course Course Course Narrative: This is an RME: Additional HPI, ROS, PE not included below will be deferred to primary provider. RME assessment and note performed by: Tsering Melo PA-C This is a [id number]-female who presenting to the ER with complaint of left lower abdominal pain since last night. Pain radiates into the vaginal area. Reports that when she urinates she has pauses in her stream and the pain becomes more strong. No hx of kidney stones. Patient with tenderness palpation along the left flank Plan: Labs, UA, further ER eval needed Reevaluation(s) Reevaluation #1: Patient's workup shows a left ovarian cyst which is likely the cause of her left abdominal and pelvic pain. She is status post hysterectomy, she has no concern for sexually transmitted infections. No fevers or chills to suggest inflammatory process. We will discharge her home and she will follow up with OBGYN. Pelvic examination was offered but declined by the patient Time: 21:43 Medications Administered Discontinued Medications Generic Name Dose Route Start Last Admin Trade Name Freq PRN Reason Stop Dose Admin Al Hydroxide/Mg Hydroxide 30 ml 02/13/25 21:07 02/13/25 21:20 Magnesium Hydrox/Alum Hydrox 30 Ml Oral.Susp PO 02/13/25 21:08 30 ml ONCE ONE Administration Sodium Chloride 1,000 mls @ 999 mls/hr 02/13/25 18:30 02/13/25 19:47 Ns IV 02/13/25 19:30 Infused .Q1H1M FAIZAN Infusion Iohexol 85 ml 02/13/25 18:42 02/13/25 18:42 Iohexol 350 Mg/Ml 100 Ml Infus..Btl IV 02/13/25 18:43 85 ml ONCE ONE Administration Ketorolac Tromethamine 30 mg 02/13/25 21:07 02/13/25 21:20 Ketorolac Tromethamine 30 Mg/Ml Vial IVPUSH 02/13/25 21:08 30 mg ONCE ONE Administration Lidocaine HCl 15 ml 02/13/25 21:07 02/13/25 21:20 Lidocaine Hcl Viscous 2 % 15 Ml Solution MUCOUS MEM 02/13/25 21:08 15 ml ONCE ONE Administration Morphine Sulfate 4 mg 02/13/25 18:24 02/13/25 18:47 Morphine Sulfate 4 Mg/Ml Cartridge IVPUSH 02/13/25 18:25 4 mg ONCE ONE Administration Protocol Ondansetron HCl 4 mg 02/13/25 18:24 02/13/25 18:47 Ondansetron Hcl 4 Mg/2 Ml Vial IVPUSH 02/13/25 18:25 4 mg ONCE ONE Administration Medical Decision Making Medical Decision Making [facility] Narrative: 54-year-old female presents for evaluation of left lower abdominal pain that started last night. She has a history of kidney stones. A renal ultrasound was ordered in triage that shows a staple simple cysts, no hydronephrosis. The patient's urine is clear. No evidence of pyuria or hematuria. However given her level of discomfort with tenderness in the left lower abdomen and guarding I ordered a CT scan of the abdomen pelvis. Concern for diverticulitis. The patient had a bowel movement this morning, so less likely obstruction but she has had numerous abdominal surgeries an SBO was not entirely excluded Differential Diagnosis Differential Diagnoses: The differential diagnosis associated with the presentation includes Abdominal pain Constipation Obstructive uropathy Diverticulitis Colitis Lab Data [facility] Lab Attestation statement: I reviewed the patient's lab results. No leukocytosis or anemia. Normal platelet count. No significant electrolyte abnormalities warranting dimension. 02/13/25 15:37 02/13/25 15:37 Labs: Lab Results 02/13/25 02/13/25 Range/Units 15:37 18:01 WBC 8.2 (4.8-10.8) X10*3/uL RBC 4.50 (4.20-5.50) X10*6/uL Hgb 13.7 (12.0-16.0) g/dl Hct 39.8 (37.0-47.0) % MCV 88.4 (80.0-98.0) fL MCH 30.4 (27.0-33.0) pg MCHC 34.4 (31.0-35.0) g/dl RDW 12.0 (11.0-16.0) % Plt Count 212 (160-400) X10*3/uL MPV 10.1 (9.4-12.3) fL Immature Gran % (Auto) 0.4 (0.0-0.4) % Neut % (Auto) 48.1 (45-73) % Lymph % (Auto) 42.1 H (20-40) % Nance % (Auto) 7.1 (2-11) % Eos % (Auto) 1.7 (0-4) % Baso % (Auto) 0.6 (0-2) % Lymph # (Auto) 3.4 (1.2-4.9) X10*3/uL Nance # (Auto) 0.6 (0.1-1.2) X10*3/uL Eos # (Auto) 0.1 (0.0-0.4) X10*3/uL Baso # (Auto) 0.1 (0.0-0.2) X10*3/uL Abs Immat Gran (auto) 0.03 (0.00-0.03) X10*3/uL Absolute Neuts (auto) 3.9 (2.0-8.3) x10*3/uL Absolute Nucleated RBC 0.000 (0.0-0.012) X10*3/uL Nucleated RBC % (auto) 0.0 (0.0-0.2) /100WBC Sodium 141 (135-145) mmol/L Potassium 3.8 (3.3-5.1) mmol/L Chloride 108 (96-108) mmol/L Carbon Dioxide 26 (22-29) mmol/L Anion Gap 11 L (12-20) BUN 6 L (9-16) mg/dL Creatinine 0.71 (0.5-1.4) mg/dL Estim Creat Clear Calc 90.7 Estimated GFR > 60 Random Glucose 118 H (60-115) mg/dL Calcium 8.5 (8.4-10.2) mg/dL Magnesium 2.1 (1.6-2.6) mg/dL Total Bilirubin 0.3 (0.0-1.0) mg/dL Direct Bilirubin 0.1 (0.0-0.5) mg/dL AST 24 (5-31) U/L ALT 26 (0-31) U/L Alkaline Phosphatase 66 (39-117) U/L Total Protein 6.8 (6.5-8.0) g/dL Albumin 4.1 (3.5-5.0) g/dL Lipase 22 (8-78) U/L Urine Color Yellow Urine Appearance Clear Urine pH 7.0 (5.0-9.0) Ur Specific [place] 1.015 (1.005-1.025) Urine Protein Negative (Neg-Trace) mg/dL Urine Glucose (UA) Negative (Negative) mg/dL Urine Ketones Negative (Negative) mg/dL Urine Blood Negative (Negative) Urine Nitrite Negative (Negative) Ur Leukocyte Esterase Negative (Negative) Radiology Impression Discussion of test interpretation with radiology: I have reviewed the radiologist's reading. Radiologist Impression: Findings: No consolidation or effusion. Bibasilar atelectatic/dependent changes. Heart is normal size. Status post cholecystectomy. No evidence of intra or extrahepatic ductal dilation. Left kidney midpole 3.6 cm cyst. Solid organs otherwise unremarkable. No hydronephrosis or nephrolithiasis. No bowel obstruction, pneumoperitoneum, or pneumatosis. Pelvic contents unremarkable. Appendix is not definitely visualized however, no secondary signs of acute appendicitis. Redemonstration of the 2.9 cm left adnexal cyst. Small pelvic free fluid within the cul-de-sac. No acute fracture. IMPRESSION: No acute findings. Status post cholecystectomy. No intra or extrahepatic ductal dilation. Left kidney midpole 3.6 cm cyst, unchanged in the interval. A 2.9 cm left adnexal cyst and small to moderate pelvic free fluid again noted. This document has been electronically signed by: Tamara Calhoun MD on 02/13/2025 19:47:00 FINDINGS: LEFT KIDNEY: 11 x 6 x 6 cm (SAG x AP x TRV). The kidney is normal in size, contour, and echogenicity. Renal cortical thickness is normal. Again seen is an anechoic cyst with increased through transmission in the equatorial region of the kidney with a thin-wall and with no internal septation or mural nodule measuring 3.6 cm in maximum diameter. US/US renal LT IMPRESSION: Benign simple renal cyst in the mid left kidney, stable. Electronically signed by: Rao Ramirez MD 02/13/2025 04:24 PM EDT RP Discharge Plan Discharge Clinical Impression: Ovarian cyst Patient Disposition: Home, Self-Care Instructions: Ovarian Cyst (ED) Additional Instructions: Your workup in the ER today was reassuring. Your ultrasound of your kidney did show a renal cyst that is stable and not concerning. Your CT scan showed an ovarian cyst which is likely the cause of your pain pain Your blood work was reassuring your urinalysis did not show blood or infection Use ibuprofen/Tylenol for pain and you may follow up with your primary doctor Prescriptions: No Action ketorolac 10 mg tablet 10 mg PO TID PRN (Reason: pain) Qty: 10 0RF Rx Instructions: Denied uses medication with NSAIDs, only Tylenol if needed cephalexin 500 mg capsule 500 mg PO Q6H 7 Days Qty: 28 0RF doxycycline hyclate 100 mg tablet 100 mg PO BID Qty: 14 0RF Print Language: [place] Citizen
[2025-02-13 15:40] LABS: MANUAL DIFF FLAG NO
[2025-02-13 15:42] LABS: Hematocrit 39.8 % (37.0-47.0); Hemoglobin 13.7 g/dl (12.0-16.0); Imm Gran Abs Auto 0.03 X10*3/uL (0.00-0.03); Imm Gran Pct Auto 0.4 % (0.0-0.4); Lymphocytes Absolute Auto 3.4 X10*3/uL (1.2-4.9); Mean Corpuscular HGB Conc 34.4 g/dl (31.0-35.0); Mean Corpuscular Hemoglobin 30.4 pg (27.0-33.0); Mean Corpuscular Volume 88.4 fL (80.0-98.0); NRBC Abs Auto 0.000 X10*3/uL (0.0-0.012); NRBC Pct Auto 0.0 /100WBC (0.0-0.2); Platelet Count 212 X10*3/uL (160-400); Red Blood Count 4.50 X10*6/uL (4.20-5.50); White Blood Count 8.2 X10*3/uL (4.8-10.8)
[2025-02-13 16:01] LABS: Alanine Aminotransferase 26 U/L (0-31); Albumin Level 4.1 g/dL (3.5-5.0); Alkaline Phosphatase 66 U/L (39-117); Anion Gap 11 (12-20); Aspartate Amino Transferase 24 U/L (5-31); Blood Urea Nitrogen 6 mg/dL (9-16); Calcium 8.5 mg/dL (8.4-10.2); Carbon Dioxide 26 mmol/L (22-29); Chloride 108 mmol/L (96-108); Creatinine Clr Calc Pharmacy 90.7; Estimated Glomerular Filt Rate > 60; Lipase 22 U/L (8-78); Magnesium 2.1 mg/dL (1.6-2.6); Potassium 3.8 mmol/L (3.3-5.1); Sodium 141 mmol/L (135-145); Total Protein 6.8 g/dL (6.5-8.0)
[2025-02-13 18:19] LABS: Appearance Urine Clear; Glucose Urine UA Negative (Negative); PH 7.0 (5.0-9.0); Specific Gravity - Urine 1.015 (1.005-1.025)
[2025-02-13] MEDS: iohexoL 350 MG/ML 100 ML INFUS..BTL 85 ML IV (18:42)
--- NOTE | 2025-02-13 18:44 | PC.NURSE ---
20g IV access established in right AC. Away for CT scan with contrast. To be medicated upon return.
--- OUTSIDE RECORDS SUMMARY | 2025-02-13 19:15 | XMS_ITS | Encounter Summary ---
Author Organization [employer] Address [address] [place] [address] [address] [place] [address] Care Team Providers Care Vice President Consulting Services Name Role Phone Unavailable Primary Care Provider Unavailabl e Encounter Details Date Type Department Care Team (Latest Contact Info) Description 11/10/2018 Abstract [facility] Dental, Provider, DDS Social History Tobacco Use Types Packs/Day Years Used Date Smoking Tobacco: Never Assessed Comments Unknown Sex and Gender Information Value Date Recorded Sex Assigned at Female 03/30/2022 10:17 AM EDT Legal Sex Female 10:17 AM EDT Gender Identity Female 03/30/2022 10:17 AM EDT Sexual Orientation Don't know 03/30/2022 10 :17 AM EDT documented as of this encounter Plan of Treatment Not on file documented as of this encounter Visit Diagnoses Not on filedocumented in this encounter
--- OUTSIDE RECORDS SUMMARY | 2025-02-13 19:15 | XMS_ITS | Encounter Summary ---
Author Organization [employer] Address [address] [place] [address] [address] [place] [address] Care Team Providers Care Buyer Renter Name Role Phone Unavailable Primary Care Provider Unavailabl e Reason for Visit * Reason Onset Date Comments no show rescheduled 03/17/2024 payment for visit on Thursday 03/2903/17/2024 Encounter Details Date Type Department Care Team ([facility] st Contact Info) Description 03/17/2024 Telephone [facility] [address] [place] [address] Shayla Hobbs DDS no show rescheduled ; payment for visit on Thursday 03/29 Social History Tobacco Use Types Packs/Day Years Used Date Smoking Tobacco: Some Days Cigarettes Smokeless Tobacco: Former Comments Unknown Sex and Gender Information Value Date Recorded Sex Assigned at Female 03/30/2022 10:17 AM EDT Legal Sex Female 10:17 AM EDT Gender Identity Female 03/30/2022 10:17 AM EDT Sexual Orientation Don't know 03/30/2022 10 :17 AM EDT documented as of this encounter Miscellaneous Notes * Telephone Encounter - Addis Lee - 03/27/2024 9:26 AM EDT Patient states that she had been waiting for a call to inform her what her payment will be on Thursday 03/29. She stated that lab or office was supposed to reach out to last week with quote. She is unaware of how much she must have on hand. Pls follow up with patient * Telephone Encounter - Addis Lee - 03/17/2024 9:40 AM EDT Patient called in asking to reschedule an appt she missed on 03/16 due to feeling sick with asthma.It was an appt that was not cancelled before hand. Appt was rescheduled by [facility] due to patient beingin active treatment for partials. Patient was informed that appt was rescheduled due to being in active treatment. However going forward patient must call to cancel appt. Otherwise a no show will cause patient to be on a waiting period prior to being rescheduled. Patient understood DR documented in this encounter Plan of Treatment Not on file documented as of this encounter Visit Diagnoses Not on filedocumented in this encounter
--- OUTSIDE RECORDS SUMMARY | 2025-02-13 19:15 | XMS_ITS | Clinical Summary ---
Author Organization [employer] Address [address] [place] [address] [address] [place] [address] Care Team Providers Care Circus Agent Name Role Phone Unavailable Primary Care Provider Unavailabl e Allergies Active Allergy Reactions Criticality Noted Date Comments Emedastine 10/27/2018 Medications sertraline (Zoloft) 25 MG tablet TOME 1 TABLETA POR V A ORAL TODOS LOS D 08/25/2023 Active Melatonin Maximum Strength 5 MG tablet TAKE 1-2 TABLET BY MOUTH EVERY NIGHT AT BEDTIME NEEDED 08/25/2023 Active Social History Tobacco Use Types Packs/Day Years Used Date Smoking Tobacco: Some Days Cigarettes Smokeless Tobacco: Former Tobacco Cessation:Ready to Q uit: Not Asked; Counseling Given: Not Answered Comments Unknown Sex and Gender Information Value Date Recorded Sex Assigned at Female 03/30/2022 10:17 AM EDT Legal Sex Female 10:17 AM EDT Gender Identity Female 03/30/2022 10:17 AM EDT Sexual Orientation Don't know 03/30/2022 10 :17 AM EDT Plan of Treatment Health Maintenance Due Date Last Done Comments CT Colonography 1972 Colonoscopy 1972 Colorectal Cancer Screening 1972 Depression Screening 1972 FIT DNA/Cologuard 1972 FIT 1972 FOBT 1972 HIV Screening 1972 Lipid Panel 1972 SDOH Screening 1972 Sigmoidoscopy 1972 Disability Screening 1972 Alcohol/Substance Use Screening 1984 Family Planning (PISQ) 12/16/1987 Hepatitis C Screening 1990 Hepatitis B Vaccines (1 of 3 - 19+ 3-dose series) 12/16/1991 Pneumococcal Vaccine: 50+ Years (1 of 2 - PCV) 12/16/1991 Pap Smear 1993 Cervical Cancer Screening 2002 HPV/Cotest 2002 Mammogram 2012 Dental Oral Exam 04/30/2019 10/27/2018, 10/27/2018 Dental Prophylaxis 05/13/2019 11/10/2018, 11/10/2018 Dental X-Ray: Bitewings 10/29/2019 10/28/19 19, 10/27/2018, 10/27/2018 Dental X-Ray: Full Mouth 10/28/2021 019, 10/27/2018, 10/27/2018 Zoster Vaccines (1 of 2) 2022 COVID-19 Vaccine (3 - 2024-2 6 season) 2025 10/13/2020, 09/22/2020 Influenza Vaccine (#1) 2025 , 07/06/2014, 09/10/2011 Tobacco Screening 05/23/2025 05/23/2024 DTaP/Tdap/Td Vaccines (3 - T d or Tdap) 07/01/2031 07/01/2021, 09/07/2008 RSV Patients and Patients Aged 60 years or older (1 - 1-dose 75+ series) 12/16/2047 HIB Vaccines Aged Out No longer eligi ble based on patient's age to complete this topic HPV Vaccines Aged Out No longer eligi ble based on patient's age to complete this topic Hepatitis A Vaccines Aged Out No long er eligible based on patient's age to complete this topic IPV Vaccines Aged Out No longer eligi ble based on patient's age to complete this topic Meningococcal B Vaccine Aged Out No l onger eligible based on patient's age to complete this topic Meningococcal Vaccine Aged Out No venus michael eligible based on patient's age to complete this topic RSV under 20 months Aged Out No longe r eligible based on patient's age to complete this topic Rotavirus Vaccines Aged Out No longer eligible based on patient's age to complete this topic Procedures Procedure Name Priority Date/Time Associated Diagnosis Comments PROPHYLAXIS - ADULT Routine 11/10/2018 1 2:00 AM EDT INTRAORAL - COMPLETE SERIES OF RADIOGRAPHIC IMAGES Routine 10/27/2018 12:00 AM EDT COMPREHENSIVE ORAL EVALUATION - NEW OR ESTABLISHED PATIENT Routine 10/27/2018 12:00 AM EDT from Last 3 Months or Most Recently Relevant to Health Maintenance Insurance [facility] MEDICAID STAND ADULT
[2025-02-13] MEDS: Lidocaine HCl Viscous 2 % 15 ML SOLUTION MUCOUS MEM (21:20)
[2025-02-13] MEDS: Magnesium Hydrox/Alum Hydrox 30 ML ORAL.SUSP PO (21:20)
== END 2025-02-13 21:59 | disposition home or self-care (01) ==
PROVIDERS: Physician Assistant Medical; Emergency Provider Student in an Organized Health Care Education/Training Program; PCP Internal Medicine
DX: N83.202 Unspecified ovarian cyst, left side (principal); R10.32 Left lower quadrant pain; R11.0 Nausea; R30.0 Dysuria
CPT/HCPCS: 36415; 74177; 76775; 80048; 80076; 81003; 83690; 83735; 85025; 96361; 96374; 96375; 99284; 99285; J1885; J2270; J2405; Q9967

== ENCOUNTER → 2025-02-13 14:56 | Outpatient (BNV) | payer OTHER, SELFPAY | PROVIDERS: Visit Provider Radiology Diagnostic Radiology | DX: N83.292 Other ovarian cyst, left side (principal) | CPT/HCPCS: 74177; 76775 ==